=== PATIENT | female | born 1950 | race Caucasian/White ===

== ENCOUNTER → 2018-05-06 10:48 | Outpatient (BNVA) | payer MEDICARE, OTHER, SELFPAY | PROVIDERS: PCP Nurse Practitioner Family; Visit Provider Student in an Organized Health Care Education/Training Program | DX: G56.03 Carpal tunnel syndrome, bilateral upper limbs (principal) | CPT/HCPCS: 99213 ==

== ENCOUNTER 2018-07-30 10:41 | Day surgery (SDC) | payer MEDICARE, SELFPAY ==
[2018-07-30 11:02] VITALS: BP 147/72; PULSE 45; RESP 15; TEMP 36.3; O2SAT 98
[2018-07-30] MEDS: Lactated Ringers 1,000 ML 80 ML IV (11:31)
[2018-07-30] MEDS: Lidocaine 1% Pres-Free 5 ML VIAL (12:46)
--- NOTE | 2018-07-30 13:07 | PDOC.DSDIS_ITS ---
Discharge Plan Disposition Patient Disposition: HOME Condition: Good Discharge Details Reason For Visit: Right Carpal Tunnel Release Attending Provider: Kory Fisher Primary Care Provider: Eleonora Coffey Home Meds and New Rx's Prescriptions: New acetaminophen [Tylenol] 325 mg Tablet 650 mg PO Q4H PRN PRNQty: 0 RF: 0 Continue paroxetine HCl [Paxil] 10 MG tablet 10 mg PO HS RF: 0 ibuprofen 200 MG capsule 400 mg PO PRN PRN (Reason: Pain) RF: 0 propranolol 40 MG tablet 40 mg PO DAILY RF: 0 multivitamin 1 EACH capsule 1 ea PO DAILY RF: 0 cholecalciferol (vitamin D3) 5,000 UNIT capsule 5,000 unit PO DAILY RF: 0 afhjiezh-yntl-kyi4-C-camille-bosw [Glucosamine-Chondroitin 3X] 1 EACH tablet 1 ea PO DAILY RF: 0 flaxseed 1,000 MG capsule 2,000 mg PO BID RF: 0 iron [id number]-Sw-doyw [Iron 21/7] 1 EACH tablet 28 mg PO DAILY RF: 0 biotin 1 MG capsule 1 mg PO DAILY RF: 0 fish,bora,flax oils-om3,6,9no1 [[place] 3-6-9] 1,200 MG capsule 1 cap PO BID RF: 0 aspirin 325 mg Tablet 325 mg PO DAILY RF: 0 Ca carb-Ca gluc-Mg ox-Mg gluco [Calcium Magnesium] 500 mg calcium -250 mg Tablet 1 tab PO RF: 0 Discharge Instructions Stand Alone Forms: Phillip Herman Tunnel Release Equipment/Supplies: Sling Activity:: Elevate Remove Dressings/Wound Care:: 48 hours Shower/Bathe:: 48 hours Diet:: As Tolerated Discharge Orders Discharge Orders: Discharge Order (Routine); Ordered 07/30/18 Ordered By: Kory Fisher DS: Diagnosis Discharge Diagnosis (1) Acute carpal tunnel syndrome of right wrist: Status: Acute
--- NOTE | 2018-07-30 17:10 | W.PM.OP ---
Date of service: 07/30/18 Time of Service: 16:10 Operative Note DATE OF PROCEDURE: 07/30/18 PRE-OP DIAGNOSIS: Right Carpal Tunnel Syndrome POST-OP DIAGNOSIS: same PROCEDURE: Right Endoscopic Carpal Tunnel Release SURGEON: Kory Fisher ANESTHESIA: MAC ESTIMATED BLOOD LOSS: 0 PATHOLOGY: none sent TOURNIQUET TIME: 7 COMPLICATIONS: None Patient was transported to: same day Patient's condition: stable Indications: I have seen Felisa in clinic for symptoms of carpal tunnel syndrome. The numbness, tingling, and pain limited function. Clinical exam findings confirmed the diagnosis of carpal tunnel syndrome. Nonoperative measures such as bracing, time, activity modifications had been tried but disability and pain persisted. I discussed carpal tunnel release with the patient. I reviewed the risks of the procedure to include, but not limited to, bleeding, infection, pain, stiffness, incomplete release, damage to nerves or vessels, persistent numbness, recurrence. Despite these risks, the patient elected to proceed. Findings: There was tightened carpal tunnel. This was dilated and released successfully with the endoscopic with increased space within the tunnel. The antebrachial fascia was released proximally freeing the median nerve at the wrist. Procedure Description: Felisa was greeted in the preoperative holding area where the correct side was identified and marked. The consent was reviewed with the patient and signed. The history and physical was updated. All questions were answered. Felisa was taken back to the operating room. The patient was placed into the supine position on the operating room table with the right arm on an arm board. A nonsterile tourniquet was placed high onto the arm. All bony prominences were well padded. Prophylactic antibiotics in the form of cefazolin were administered. The right arm was then prepped with Chloraprep and draped in a standard fashion with stockinette and extremity drape. A timeout to confirm correct identity, side and site, procedure, allergies, anesthesia, and medical concerns was performed. The surgical site was marked in the volar wrist creases in line with the radial border of the fourth ray. This area was anesthetized with approximately 6cc of 1% Lidocaine. The limb was then exsanguinated with an Esmarch. The skin was incised with a 15 blade, approximately 1cm. The skin only was cut and the deeper tissue was dissected bluntly with a tenotomy scissor, avoiding passing nerve and venous structures. The fascia was penetrated and opened bluntly. A two-prong skin hook was placed under this proximal fascial edge. A series of hamate finders were used to identify and dilate the carpal tunnel. Synovial elevator was used to free synovial attachments to the underside of the transverse carpal ligament. My thumb was kept in the palm to debbi the distal extent of the carpal tunnel and correctly position the hand. The [employer] endoscope was inserted without difficulty and without resistance. Excellent visualization showed horizontally running fibers of the transverse carpal ligament (TCL). The distal extent of the TCL was visualized and the end of the scope palpated with the thumb. The blade was elevated and withdrawn from distal to proximal. The TCL was split into two flaps. The endoscope was reinserted to confirm complete release and any remnant ligament was incised. The scope was withdrawn and the proximal aspect of the carpal tunnel was grossly inspected and appeared release with the median nerve visible. The antebrachial fascia at the level of the wrist was then freed from the overlying skin and then the underlying median nerve with blunt dissection. This was transected longitudinally for about 3cm proximal to the wrist incision. The wound was then irrigated with easy flow of irrigant distally and proximally. The incision was closed with a single 4-0 Nylon suture. The wound was dressed with Xeroform, Gauze, Kerlix and Saravanan. The tourniquet was deflated with the initial dressing and held with some pressure. Blood flow returned easily to all digits with capillary refill less than 2 seconds. The patient tolerated the procedure well and was returned to the Same Day Surgery area in a stable condition suffering no known complication.
== END 2018-07-30 14:11 | disposition home or self-care (01) ==
PROVIDERS: PCP Nurse Practitioner Family; Visit Provider Student in an Organized Health Care Education/Training Program
PROC: 01N54ZZ Release Median Nerve, Percutaneous Endoscopic Approach (ICD-10-PCS; CPT 29848; principal; 2018-07-30 12:00)
DX: G56.01 Carpal tunnel syndrome, right upper limb (principal)
CPT/HCPCS: 29848; 99211; J0690; L3650

== ENCOUNTER → 2018-08-07 13:42 | Outpatient (BNVA) | payer MEDICARE, SELFPAY | PROVIDERS: PCP Nurse Practitioner Family; Referring Provider Nurse Practitioner Family; Visit Provider Student in an Organized Health Care Education/Training Program | DX: G56.01 Carpal tunnel syndrome, right upper limb (principal); Z47.89 Encounter for other orthopedic aftercare ==

== ENCOUNTER 2018-09-20 08:19 | Outpatient (CLI) | payer OTHER, SELFPAY ==
--- NOTE | 2018-09-20 08:22 | DI.RAD_ITS ---
SYMPTOMS/DIAGNOSIS: S/P REVISION OF LEFT TKA LEFT KNEE: Two views. Comparison is 06/16/15. 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 The orthopedic hardware appears in good position. The bones appear intact.
== END 2018-09-20 08:39 ==
PROVIDERS: PCP Nurse Practitioner Family; Referring Provider Nurse Practitioner Family; Visit Provider Student in an Organized Health Care Education/Training Program
DX: Z96.652 Presence of left artificial knee joint; Z47.1 Aftercare following joint replacement surgery; M17.12 Unilateral primary osteoarthritis, left knee
CPT/HCPCS: 99214; 73560

== ENCOUNTER 2019-03-17 15:58 | Outpatient (REF) | payer OTHER, SELFPAY ==
[2019-03-17 21:13] LABS: HCT 39.4 % (36.0-46.0); HGB 12.9 g/dL (12.0-15.5); Mean Corp. HGB Concentration 32.7 g/dL (32.0-36.0); Mean Corpuscular Hemoglobin 29.5 pg (27.0-33.0); Mean Platelet Volume 10.5 fL (8.0-11.0); Platelet Count 345 x1000/uL (130-400); RBC 4.38 m/cumm (4.00-5.20); RBC Distribution Width 12.9 % (11.7-14.6); White Blood Cell Count 5.85 k/cumm (4.4-10.8)
[2019-03-17 21:18] LABS: Calculated LDL 144 mg/dL; Cholesterol 238 mg/dL (50-200); HDL Cholesterol 44 mg/dL (40-60); Triglyceride 253 mg/dL (30-150)
[2019-03-17 22:10] LABS: Iron 58 ug/dL (50-175); Total Iron Binding Capacity 251 ug/dL (250-450); Transferrin Sat 23 % (15-50)
[2019-03-18 14:37] LABS: ALT 24 U/L (12-78); AST 21 U/L (15-37); Albumin 3.9 g/dL (3.4-5.0); Alkaline Phosphatase 93 U/L (46-116); Anion Gap 10.7 mmol/L (3-11); BUN 14 mg/dL (7-18); Bilirubin, Total 0.3 mg/dL (0.2-1.0); CO2 25.3 mmol/L (21.0-32.0); Calcium 9.2 mg/dL (8.5-10.1); Chloride 106 mmol/L (98-107); Glucose 104 mg/dL (70-100); Sodium 142 mmol/L (136-145); Total Protein 6.7 g/dL (6.4-8.2)
== END 2019-03-17 16:18 ==
LOC: NCHCN 15:58
PROVIDERS: PCP Nurse Practitioner Family; Visit Provider Nurse Practitioner Family
DX: D50.9 Iron deficiency anemia, unspecified (principal); R51 Headache; E78.00 Pure hypercholesterolemia, unspecified; I63.9 Cerebral infarction, unspecified; N39.3 Stress incontinence (female) (male); N95.1 Menopausal and female climacteric states; M85.80 Other specified disorders of bone density and structure, unspecified site; Z13.9 Encounter for screening, unspecified
CPT/HCPCS: 80053; 80061; 83721; 85027; 83540; 83550

== ENCOUNTER 2019-05-01 08:54 | Outpatient (REF) | payer OTHER, SELFPAY ==
[2019-05-01 13:53] LABS: ALT 23 U/L (14-59); AST 17 U/L (15-37); Albumin 3.8 g/dL (3.4-5.0); Alkaline Phosphatase 92 U/L (46-116); Anion Gap 7.1 mmol/L (3-11); BUN 19 mg/dL (7-18); Bilirubin, Total 0.6 mg/dL (0.2-1.0); CO2 27.9 mmol/L (21.0-32.0); Calcium 9.2 mg/dL (8.5-10.1); Calculated LDL 116 mg/dL; Chloride 106 mmol/L (98-107); Cholesterol 193 mg/dL (50-200); Glucose 102 mg/dL (70-100); HDL Cholesterol 56 mg/dL (40-60); Potassium 4.5 mmol/L (3.5-5.1); Sodium 141 mmol/L (136-145); Total Protein 7.4 g/dL (6.4-8.2); Triglyceride 107 mg/dL (30-150)
== END 2019-05-01 09:14 ==
LOC: NCHCN 08:54
PROVIDERS: PCP Nurse Practitioner Family; Visit Provider Nurse Practitioner Family
DX: E78.00 Pure hypercholesterolemia, unspecified (principal)
CPT/HCPCS: 80053; 80061

== ENCOUNTER 2019-09-29 08:24 | Outpatient (CLI) | payer OTHER, SELFPAY ==
--- NOTE | 2019-09-29 08:40 | DI.RAD_ITS ---
EXAM: XR KNEE LT 2V AP,LAT INDICATION: ANNUAL F/U. COMPARISON: XR knee LT 2V AP,lat from 09/20/2018 TECHNIQUE: 2D digital imaging was performed. FINDINGS: The patient has a left total knee replacement. The orthopedic hardware appears stable. No acute fra cture or dislocation is present. The soft tissues are unremarkable. IMPRESSION: Stable left TKR.
--- NOTE | 2019-09-29 09:11 | DI.RAD_ITS ---
EXAM: XR SHOULDER LT COMPLETE 2+V INDICATION: restricted motion and left shoulder pain. COMPARISON: No exams were available for comparison TECHNIQUE: 2D digital imaging was performed. FINDINGS: There is marked narrowing of the glenohumeral joint. Subchondral sclerosis and subchondral cysts are present at the glenohumeral joint. There is periarticular spurring at the humeral head. There is a small well corticated osseous density at the posterior aspect of the glenoid. This likely reflects old injury. No acute fracture or dislocation is present. There are mild hypertrophic changes seen a t the acromioclavicular joint. The soft tissues are unremarkable. 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
== END 2019-09-29 08:44 ==
PROVIDERS: PCP Nurse Practitioner Family; Referring Provider Nurse Practitioner Family; Visit Provider Student in an Organized Health Care Education/Training Program
DX: M25.512 Pain in left shoulder (principal); M25.812 Other specified joint disorders, left shoulder; M19.012 Primary osteoarthritis, left shoulder; Z96.652 Presence of left artificial knee joint; Z47.1 Aftercare following joint replacement surgery; M75.82 Other shoulder lesions, left shoulder
CPT/HCPCS: 99213; 73030; 73560

== ENCOUNTER 2019-10-16 01:40 | Outpatient (CLI) | payer OTHER, SELFPAY ==
--- NOTE | 2019-10-16 07:00 | DI.RAD_ITS ---
EXAM: RF JOINT INJECTION FLUORO GUID CLINICAL HISTORY: L SHOULDER INJ UNDER FLUORO, LT SHOULDER PAIN, M25.512. TECHNIQUE: 2D and realtime digital imaging was performed. COMPARISON: No exams were available for comparison FINDINGS: Fluoroscopy was provided for Dr. Fisher for guidance with performing a shoulder injection. Please see procedure note for details. Fluoro Time: 0.04 minutes
[2019-10-16] MEDS: Bupivacaine 0.5% Pres-Free 10 ML VIAL IJ (15:43)
[2019-10-16] MEDS: Omnipaque 300 MG/ML 10 ML BTL IJ (15:43)
[2019-10-16] MEDS: methylPREDNISolone ACETATE 80 MG/ML VIAL IM (15:44)
--- NOTE | 2019-10-16 21:26 | W.PROCNOTE ---
Date of service: 10/16/19 Time of Service: 15:27 Procedure Note Date of procedure: 10/16/19 Procedure: Left Shoulder Injection Surgeon/Proceduralist/Physician: Kory Fisher Procedure Indications: Felisa has had persistent pain of the LEFT shoulder. Noninvasive measures have been tried. To serve as both diagnostic and therapeutic, an injection under fluoroscopy was recommended. I had discussed the risks of the procedure and the patient elected to proceed. Procedure Description: Felisa was greeted in the flouroscopy room. The correct side was identified and the consent was reviewed with the patient and signed. The patient was then placed in the supine position on the fluoroscopy table. The LEFT shoulder was then prepped with Chloraprep. The anterior injection starting point was identiifed by bony landmarks and fluoroscopy. The skin and soft tissue in the tract of the injection was anesthetized with 1% Lidocaine. A spinal needle was then inserted deep into the shoulder joint at the level of the recess between the glenoid and superior humeral head. A small amount of Omnipaque solution was injected to confirm intraarticular placement. Once confirmed, the shoulder was injected with 4cc of 0.5% Bupivicaine and 80mg of Depo-Medrol. A bandaid was placed on the injection site. The patient tolerated the procedure well and noted improvement in pre-injection pain.
== END 2019-10-16 02:00 ==
PROVIDERS: PCP Nurse Practitioner Family; Visit Provider Student in an Organized Health Care Education/Training Program
DX: M25.512 Pain in left shoulder (principal)
CPT/HCPCS: 20610; 77002; J1040

== ENCOUNTER 2020-06-18 12:17 | Outpatient (REF) | payer OTHER, SELFPAY ==
[2020-06-18 21:52] LABS: Calculated LDL 113 mg/dL (<100); Cholesterol 187 mg/dL (<200); HDL Cholesterol 57 mg/dL (40-60); Triglyceride 88 mg/dL (<150)
== END 2020-06-18 12:37 ==
LOC: NCHCN 12:17
PROVIDERS: PCP Nurse Practitioner Family; Visit Provider Nurse Practitioner Family
DX: E78.00 Pure hypercholesterolemia, unspecified (principal)
CPT/HCPCS: 80061

== ENCOUNTER 2020-11-08 15:02 | Outpatient (REF) | payer OTHER, SELFPAY ==
[2020-11-08 21:34] LABS: HCT 39.3 % (36.0-46.0); HGB 12.6 g/dL (11.2-15.7); MCH 28.8 pg (27.0-33.0); MCHC 32.1 % (32.0-36.0); MCV 89.9 fL (80-95); MPV 10.2 fL (8.0-11.0); Platelet Count 321 10^3/uL (130-400); RBC 4.37 10^6/uL (3.93-5.22); RDW 12.6 % (11.7-14.6); WBC 6.14 10^3/uL (4.4-10.8)
[2020-11-08 21:45] LABS: Anion Gap 9.6 mmol/L (3-11); BUN 19 mg/dL (7-18); CO2 27.4 mmol/L (21.0-32.0); CREATININE 0.9 mg/dL (0.55-1.02); Calcium 9.5 mg/dL (8.5-10.1); Chloride 103 mmol/L (98-107); Glucose 92 mg/dL (74-106); Potassium 4.5 mmol/L (3.5-5.1); Sodium 140 mmol/L (136-145)
== END 2020-11-08 15:03 | disposition home or self-care (01) ==
LOC: NCHCN 15:02
PROVIDERS: PCP Nurse Practitioner Family; Visit Provider Family Medicine
DX: B37.0 Candidal stomatitis (principal)
CPT/HCPCS: 80048; 85027

== ENCOUNTER 2021-04-05 08:56 | Outpatient (REF) | payer OTHER, SELFPAY ==
[2021-04-07 12:28] LABS: COVID-19 RT-PCR UVMMC Result Negative (Negative)
== END 2021-04-05 08:57 | disposition home or self-care (01) ==
LOC: NCHCN 08:56
PROVIDERS: PCP Nurse Practitioner Family; Visit Provider Nurse Practitioner Family
DX: Z20.822 Contact with and (suspected) exposure to COVID-19 (principal)
CPT/HCPCS: U0003

== ENCOUNTER 2021-07-19 12:46 | Outpatient (REF) | payer MEDICARE, SELFPAY ==
[2021-07-19 15:51] LABS: Abs Immature Grans 0.03 10^3/uL (0.0-0.06); Absolute Basophil Count 0.08 10^3/uL (0.0-0.2); Absolute Eosinophil Count 0.16 10^3/uL (0.0-0.7); Absolute Lymphocyte Count 1.93 10^3/uL (1.2-3.4); Absolute Monocyte Count 0.66 10^3/uL (0.1-0.8); Basophils % 1.2; Eosinophils % 2.4; HCT 39.3 % (36.0-46.0); HGB 12.3 g/dL (11.2-15.7); Immature Grans % 0.5; MCH 27.9 pg (27.0-33.0); MCHC 31.3 % (32.0-36.0); MCV 89.1 fL (80-95); Monocytes % 9.9; Nucleated RBC 0 %; Platelet Count 310 10^3/uL (130-400); RBC 4.41 10^6/uL (3.93-5.22); RDW 13.3 % (11.7-14.6); RDW-SD 43.7 fL; WBC 6.66 10^3/uL (4.4-10.8)
[2021-07-19 16:04] LABS: Iron 79 ug/dL (50-170); Total Iron Binding Capacity 278 ug/dL (250-450); Transferrin Sat 28 % (15-50)
[2021-07-19 16:16] LABS: ALT 24 U/L (14-59); AST 17 U/L (15-37); Alkaline Phosphatase 91 U/L (46-116); Anion Gap 7.2 mmol/L (3-11); BUN 16 mg/dL (7-18); Bilirubin, Total 0.6 mg/dL (0.2-1.0); CO2 28.8 mmol/L (21.0-32.0); CREATININE 0.8 mg/dL (0.55-1.02); Calcium 9.3 mg/dL (8.5-10.1); Chloride 109 mmol/L (98-107); Ferritin 67 ng/mL (8-252); Glucose 89 mg/dL (74-106); Potassium 4.6 mmol/L (3.5-5.1); Sodium 145 mmol/L (136-145)
== END 2021-07-19 12:47 | disposition home or self-care (01) ==
LOC: NCHCN 12:46
PROVIDERS: PCP Nurse Practitioner Family; Visit Provider Nurse Practitioner Family
DX: D50.9 Iron deficiency anemia, unspecified (principal); I10 Essential (primary) hypertension; E78.00 Pure hypercholesterolemia, unspecified
CPT/HCPCS: 80053; 82728; 83540; 83550; 85025

== ENCOUNTER 2021-08-02 10:19 | Outpatient (REF) | payer OTHER, SELFPAY ==
[2021-08-02 14:55] LABS: Anion Gap 7.8 mmol/L (3-11); BUN 17 mg/dL (7-18); CO2 29.2 mmol/L (21.0-32.0); CREATININE 0.9 mg/dL (0.55-1.02); Calcium 9.5 mg/dL (8.5-10.1); Chloride 106 mmol/L (98-107); Glucose 96 mg/dL (74-106); Potassium 4.8 mmol/L (3.5-5.1); Sodium 143 mmol/L (136-145)
== END 2021-08-02 10:20 | disposition home or self-care (01) ==
LOC: NCHCN 10:19
PROVIDERS: PCP Nurse Practitioner Family; Visit Provider Nurse Practitioner Family
DX: I10 Essential (primary) hypertension (principal)
CPT/HCPCS: 80048

== ENCOUNTER 2021-09-22 02:29 | Outpatient (CLI) | payer MEDICARE, SELFPAY ==
--- NOTE | 2021-09-22 | DI.DEXA_ITS ---
Exam(s) XR DEXA BONE DENSITY W/WO SANGITA EXAM: XR DEXA BONE DENSITY W/WO SANGITA CLINICAL HISTORY: OTHER SPECIFIED DISORDERS OF BONE DENSITY AND STRUCTURE, M85.88 TECHNIQUE: COMPARISON: 02/05/2018 FINDINGS: Lateral Spine Image: Unremarkable. No compression deformities identified. Left hip: Total T-Score: -1.7. This compares to -2.1 on the prior examination. Total Z-Score: -0.2. T- and Z-scores: Findings are consistent with osteopenia. Lumbar Spine: Total T-Score: -0.2. This compares to -1.0 on the prior examination. Total Z-Score: 2.0 T- and Z-scores: Within normal limits. IMPRESSION: Osteopenia in the left hip.
== END 2021-09-22 02:49 ==
PROVIDERS: PCP Nurse Practitioner Family; Visit Provider Nurse Practitioner Family
DX: M85.88 Other specified disorders of bone density and structure, other site (principal)
CPT/HCPCS: 77080

== ENCOUNTER 2022-08-09 15:08 | Outpatient (REF) | payer MEDICARE, SELFPAY ==
[2022-08-09 14:10] LABS: Abs Immature Grans 0.02 10^3/uL (0.0-0.06); Absolute Basophil Count 0.09 10^3/uL (0.0-0.2); Absolute Eosinophil Count 0.16 10^3/uL (0.0-0.7); Absolute Lymphocyte Count 1.86 10^3/uL (1.2-3.4); Absolute Monocyte Count 0.62 10^3/uL (0.1-0.8); Absolute Neutrophil Count 3.06 10^3/uL (1.2-6.7); Basophils % 1.5; Eosinophils % 2.8; HCT 38.9 % (36.0-46.0); HGB 12.5 g/dL (11.2-15.7); Immature Grans % 0.3; MCH 28.3 pg (27.0-33.0); MCHC 32.1 % (32.0-36.0); MCV 88 fL (80-95); MPV 10.1 fL (8.0-11.0); Monocytes % 10.7; Neutrophils % 52.7; Platelet Count 310 10^3/uL (130-400); RBC 4.42 10^6/uL (3.93-5.22); RDW 13.5 % (11.7-14.6); RDW-SD 43.8 fL; WBC 5.81 10^3/uL (4.4-10.8)
[2022-08-09 14:41] LABS: Iron 78 ug/dL (50-170); Total Iron Binding Capacity 273 ug/dL (250-450); Transferrin Sat 29 % (15-50)
[2022-08-09 14:51] LABS: Ferritin 71 ng/mL (8-252); TSH (W/Ref FT4) 1.82 uIU/mL (0.36-3.74)
[2022-08-09 14:53] LABS: Vitamin D 25 Total 47.7 ng/mL (30-100)
[2022-08-09 23:25] LABS: FSH 77.9 mIU/mL (See Note)
== END 2022-08-09 15:09 | disposition home or self-care (01) ==
LOC: NCHCN 15:08
PROVIDERS: PCP Nurse Practitioner Family; Visit Provider Nurse Practitioner Family
DX: D50.9 Iron deficiency anemia, unspecified (principal); I10 Essential (primary) hypertension; M85.88 Other specified disorders of bone density and structure, other site
CPT/HCPCS: 82306; 82728; 83001; 83540; 83550; 84443; 85025

== ENCOUNTER 2023-05-08 20:11 | Outpatient (REF) | payer MEDICARE, SELFPAY ==
[2023-05-08 21:37] LABS: Abs Immature Grans 0.01 10^3/uL (0.0-0.06); Absolute Basophil Count 0.08 10^3/uL (0.0-0.2); Absolute Eosinophil Count 0.19 10^3/uL (0.0-0.7); Absolute Lymphocyte Count 1.93 10^3/uL (1.2-3.4); Absolute Monocyte Count 0.66 10^3/uL (0.1-0.8); Absolute Neutrophil Count 4.38 10^3/uL (1.2-6.7); Basophils % 1.1; Eosinophils % 2.6; HCT 38.1 % (36.0-46.0); HGB 12.7 g/dL (11.2-15.7); Immature Grans % 0.1; Lymphocytes % 26.6; MCH 29.1 pg (27.0-33.0); MCHC 33.3 % (32.0-36.0); MCV 87 fL (80-95); MPV 10.3 fL (8.0-11.0); Monocytes % 9.1; Neutrophils % 60.5; Platelet Count 334 10^3/uL (130-400); RBC 4.37 10^6/uL (3.93-5.22); RDW 12.9 % (11.7-14.6); RDW-SD 41.2 fL; WBC 7.25 10^3/uL (4.4-10.8)
[2023-05-08 21:58] LABS: Iron 44 ug/dL (50-170); Total Iron Binding Capacity 302 ug/dL (250-450); Transferrin Sat 15 % (15-50)
[2023-05-08 22:10] LABS: Anion Gap 8.7 mmol/L (3-11); BUN 13 mg/dL (7-18); CO2 26.3 mmol/L (21.0-32.0); CREATININE 0.7 mg/dL (0.55-1.02); Calcium 9.2 mg/dL (8.5-10.1); Calculated LDL 93 mg/dL (<100); Chloride 104 mmol/L (98-107); Cholesterol 177 mg/dL (<200); Estimated GFR 91.83 (mL/min/1.73m2); Ferritin 60 ng/mL (8-252); Glucose 96 mg/dL (74-106); HDL Cholesterol 66 mg/dL (40-60); Potassium 4.5 mmol/L (3.5-5.1); Sodium 139 mmol/L (136-145); Triglyceride 92 mg/dL (<150)
[2023-05-08 22:47] LABS: Vitamin D 25 Total 50.6 ng/mL (30-100)
== END 2023-05-08 20:12 | disposition home or self-care (01) ==
LOC: NCHCN 20:11
PROVIDERS: PCP Nurse Practitioner Family; Visit Provider Nurse Practitioner Family
DX: I10 Essential (primary) hypertension (principal); E78.00 Pure hypercholesterolemia, unspecified; D50.9 Iron deficiency anemia, unspecified; R25.1 Tremor, unspecified; K30 Functional dyspepsia; M85.88 Other specified disorders of bone density and structure, other site; R51.9 Headache, unspecified
CPT/HCPCS: 80048; 80061; 82306; 82728; 83540; 83550; 85025

== ENCOUNTER → 2023-10-10 07:58 | Outpatient (BNVA) | payer MEDICARE, SELFPAY | PROVIDERS: PCP Nurse Practitioner Family; Referring Provider Nurse Practitioner Family; Visit Provider Nurse Practitioner Gerontology | DX: N39.46 Mixed incontinence (principal); R33.8 Other retention of urine | CPT/HCPCS: 51798; 81003; 99205 ==

== ENCOUNTER → 2023-10-17 01:00 | Outpatient (CLI) | payer MEDICARE, SELFPAY ==
--- NOTE | 2023-10-17 06:45 | DI.US_ITS ---
Exam(s) US RENAL EXAM: US RENAL CLINICAL HISTORY: ? hydro with incomplete emptying,MIXED URINARY INCONTINENCE,R33.9,N39.46. TECHNIQUE: Crook scale, color and spectral Doppler were used. COMPARISON: No exams were available for comparison FINDINGS: Renal size in cm: Right: 10.1. Left: 10.4. Echogenicity: Normal. Hydronephrosis: No. Cyst or mass: 1.9 x 1.5 x 1.4 cm simple right renal cyst. No follow-up is recommended. Nephrolithiasis: No. Other findings: None. Bladder:Normal. Ureteral jets: Right: Not visualized on this examination. Left: Visualized and unremarkable. Prevoid vol:292 cc Postvoid vol:192 cc Renal color flow: Symmetric and within normal limits. IMPRESSION: 1. No evidence of hydronephrosis. 2. 1.9 cm right parapelvic cyst. No follow-up. 3. Large postvoid urinary bladder residual. DATA REPOSITORY:
== END ==
PROVIDERS: PCP Nurse Practitioner Family; Visit Provider Nurse Practitioner Gerontology
DX: R33.9 Retention of urine, unspecified (principal); N39.46 Mixed incontinence; N28.1 Cyst of kidney, acquired
CPT/HCPCS: 76770

== ENCOUNTER → 2024-01-09 07:49 | Outpatient (BNVA) | payer MEDICARE, SELFPAY | PROVIDERS: PCP Nurse Practitioner Family; Referring Provider Nurse Practitioner Family; Visit Provider Nurse Practitioner Gerontology | DX: N39.46 Mixed incontinence (principal); R33.8 Other retention of urine | CPT/HCPCS: 51798; 99213 ==

== ENCOUNTER 2024-05-08 18:09 | Outpatient (REF) | payer MEDICARE, SELFPAY ==
[2024-05-08 14:43] LABS: ALT 27 U/L (14-59); AST 19 U/L (15-37); Alkaline Phosphatase 72 U/L (46-116); Anion Gap 6.5 mmol/L (3-11); BUN 13 mg/dL (7-18); CO2 27.5 mmol/L (21.0-32.0); CREATININE 0.8 mg/dL (0.55-1.02); Calcium 9.2 mg/dL (8.5-10.1); Calculated LDL 90 mg/dL (<100); Chloride 101 mmol/L (98-107); Cholesterol 176 mg/dL (<200); Estimated GFR 77.75 (mL/min/1.73m2); Glucose 91 mg/dL (74-106); HDL Cholesterol 73 mg/dL (40-60); Potassium 4.5 mmol/L (3.5-5.1); Sodium 135 mmol/L (136-145); Total Protein 6.8 g/dL (6.4-8.2); Triglyceride 69 mg/dL (<150)
== END 2024-05-08 18:10 | disposition home or self-care (01) ==
LOC: NCHCN 18:09
PROVIDERS: PCP Nurse Practitioner Family; Visit Provider Nurse Practitioner Family
DX: I10 Essential (primary) hypertension (principal)
CPT/HCPCS: 80053; 80061

== ENCOUNTER → 2024-07-14 09:49 | Outpatient (BNVA) | payer MEDICARE, SELFPAY | PROVIDERS: PCP Nurse Practitioner Family; Visit Provider Nurse Practitioner Gerontology | DX: N39.46 Mixed incontinence (principal); R33.8 Other retention of urine | CPT/HCPCS: 51798; 99213 ==

== ENCOUNTER 2024-08-18 14:31 | Outpatient (REF) | payer MEDICARE, SELFPAY ==
[2024-08-18 15:02] LABS: ALT 20 U/L (14-59); AST 18 U/L (15-37); Albumin 3.7 g/dL (3.4-5.0); Alkaline Phosphatase 85 U/L (46-116); Anion Gap 8.1 mmol/L (3-11); BUN 20 mg/dL (7-18); Bilirubin, Total 0.56 mg/dL (0.2-1.0); CO2 27.9 mmol/L (21.0-32.0); CREATININE 0.8 mg/dL (0.55-1.02); Calcium 9.5 mg/dL (8.5-10.1); Calculated LDL 91 mg/dL (<100); Chloride 107 mmol/L (98-107); Cholesterol 173 mg/dL (<200); Estimated GFR 77.75 (mL/min/1.73m2); Glucose 96 mg/dL (74-106); HDL Cholesterol 73 mg/dL (40-60); Potassium 4.5 mmol/L (3.5-5.1); Sodium 143 mmol/L (136-145); Total Protein 7.1 g/dL (6.4-8.2); Triglyceride 49 mg/dL (<150)
== END 2024-08-18 14:32 | disposition home or self-care (01) ==
LOC: NCHCN 14:31
PROVIDERS: PCP Nurse Practitioner Family; Visit Provider Nurse Practitioner Family
DX: I10 Essential (primary) hypertension (principal)
CPT/HCPCS: 80053; 80061

== ENCOUNTER → 2024-12-29 08:08 | Outpatient (BNVA) | payer MEDICARE, SELFPAY | PROVIDERS: PCP Nurse Practitioner Family; Visit Provider Nurse Practitioner Gerontology | DX: N39.46 Mixed incontinence (principal); R33.9 Retention of urine, unspecified; R39.9 Unspecified symptoms and signs involving the genitourinary system | CPT/HCPCS: 51798; 99213 ==

== ENCOUNTER 2025-06-23 08:39 | Outpatient (REF) | payer MEDICARE, SELFPAY ==
[2025-06-23 14:44] LABS: Abs Immature Grans 0.01 10^3/uL (0.0-0.06); HCT 35.1 % (36.0-46.0); HGB 11.6 g/dL (11.2-15.7); Immature Grans % 0.2 %; MCH 28.5 pg (27.0-33.0); MCHC 33.0 % (32.0-36.0); MCV 86 fL (80-95); MPV 9.1 fL (8.0-11.0); Platelet Count 374 10^3/uL (130-400); RBC 4.07 10^6/uL (3.93-5.22); RDW 12.1 % (11.7-14.6); RDW-SD 38.3 fL; WBC 6.04 10^3/uL (4.4-10.8)
[2025-06-23 15:01] LABS: Iron 59 ug/dL (50-170); Total Iron Binding Capacity 251 ug/dL (250-450)
[2025-06-23 15:11] LABS: Glucose Negative (Negative)
[2025-06-23 15:20] LABS: ALT 34 U/L (14-59); AST 20 U/L (15-37); Albumin 3.6 g/dL (3.4-5.0); Alkaline Phosphatase 84 U/L (46-116); Anion Gap 6.6 mmol/L (3-11); BUN 12 mg/dL (7-18); Bilirubin, Total 0.6 mg/dL (0.2-1.0); CO2 29.4 mmol/L (21.0-32.0); Calcium 9.2 mg/dL (8.5-10.1); Calculated LDL 79 mg/dL (<100); Chloride 99 mmol/L (98-107); Cholesterol 160 mg/dL (<200); Estimated GFR 90.70 (mL/min/1.73m2); Ferritin 127 ng/mL (8-252); Glucose 94 mg/dL (74-106); HDL Cholesterol 63 mg/dL (>or=50); Potassium 4.4 mmol/L (3.5-5.1); Sodium 135 mmol/L (136-145); Total Protein 6.7 g/dL (6.4-8.2); Triglyceride 93 mg/dL (<150); Vitamin D 25 Total 50 ng/mL (30-100)
[2025-06-23 15:45] LABS: COMMENT (LAB VIEW ONLY) 91.86 mg/dL; Microalb ug/mg Crea 10.3 ug/mg Cr
[2025-06-24 09:51] LABS: Transferrin 199 mg/dL (201-352)
== END 2025-06-23 08:40 | disposition home or self-care (01) ==
LOC: NCHCN 08:39
PROVIDERS: PCP Nurse Practitioner Family; Visit Provider Nurse Practitioner Family
DX: D50.9 Iron deficiency anemia, unspecified (principal); I10 Essential (primary) hypertension; M85.80 Other specified disorders of bone density and structure, unspecified site
CPT/HCPCS: 80053; 80061; 82306; 81003; 82043; 82570; 82728; 83540; 83550; 84466; 85025

== ENCOUNTER → 2025-07-01 08:19 | Outpatient (BNVA) | payer MEDICARE, SELFPAY | PROVIDERS: PCP Nurse Practitioner Family; Visit Provider Nurse Practitioner Gerontology | DX: N39.46 Mixed incontinence (principal); R33.9 Retention of urine, unspecified; R39.9 Unspecified symptoms and signs involving the genitourinary system | CPT/HCPCS: 99213; 51798 ==